=== PATIENT | male | born 1995 | race Caucasian/White ===

== ENCOUNTER 2016-07-28 21:24 | Emergency (ER) | payer BC ==
[~2016-07-28] VITALS: Ht 177.8 cm; Wt 86.8 kg
[~2016-07-28 21:24] MED LIST: ALLEGRA180 MG PO
[2016-07-29 01:10] VITALS: BP 119/74
== END 2016-07-29 01:14 | disposition home or self-care (01) ==
LOC: EME 21:24
DX: J32.9 Chronic sinusitis, unspecified (principal); R11.2 Nausea with vomiting, unspecified
CPT/HCPCS: 99281; 99285; J0696; J1885; J2405; J7030; J7050